=== PATIENT | female | born 1955 | race Caucasian/White ===

== ENCOUNTER 2018-04-14 06:02 | Observation (INO) | payer OTHER ==
[~2018-04-14] VITALS: Ht 152.4 cm; Wt 67.6 kg
[2018-04-14 06:17] VITALS: BP 149/81
[2018-04-14 10:39] VITALS: BP 144/60
[2018-04-14 17:36] VITALS: BP 124/62
[2018-04-14 21:04] VITALS: BP 146/68
[2018-04-15 05:06] VITALS: BP 121/62
[2018-04-15 06:33] LABS: BASOPHIL % 0.4 % (0-2); PLATELET COUNT 246 x10^3mcL (130-400); RED CELL DISTRIBUTION WIDTH 13.3 % (11.5-14.5)
[2018-04-15 08:30] VITALS: BP 123/93
[2018-04-15 14:31] VITALS: BP 123/93
== END 2018-04-15 14:57 | disposition home or self-care (01) | DRG 514 ==
LOC: MU 06:02
PROVIDERS: Obstetrics & Gynecology
PROC: 0JQC0ZZ Repair Pelvic Region Subcutaneous Tissue and Fascia, Open Approach (ICD-10-PCS; principal; 2018-04-14 07:30)
PROC: 0TV Urinary System, Restriction (ICD-10-PCS; principal; 2018-04-14 07:30)
DX: N81.12 Cystocele, lateral (principal); I10 Essential (primary) hypertension; N81.6 Rectocele; N39.3 Stress incontinence (female) (male)
CPT/HCPCS: G0378; J0690; J1170; J2250; J2405; J2550; J3010